=== PATIENT | female | born 2000 | race Hispanic/Latino ===

== ENCOUNTER 2022-11-14 03:05 | Emergency (ER) | payer SELFPAY ==
--- OUTSIDE RECORDS SUMMARY | 2022-11-14 03:09 | XMS REPORT | Continuity of Care Document ---
:2000 Author Organization [facility] t Address [address] [facility] [place] [address] Care Team Providers Name Role Phone PCP, PATIENT DOES NOT HAVE A Primary Care Physician CARLENE Cotton Attending Clinician Unavailable Carlene Sanchez MD Attending Clinician LEONILA GIBBONS Attending Clinician Unavailable Leonila Gibbons MD Attending Clinician Doctor Unassigned, [place] Attending Clinician Unavailable Payers Payer Name Policy Type Policy Number Effective Date Expiration Date S ource Problems Condition Condition Condition Status Onset Resolution Last Treating Co mments Source Name Details Category Date Date Treatment Clinician Date Hyperprola Hyperprola Disease Active U nivers ctinemia ctinemia 10-07 ity of 00:00: [place] [facility] Nipple Nipple Disease Active Univers discharge discharge 09-15 ity of 00:00: [address] [place] [address] Pediatric Pediatric Disease Active Uni vers overweight overweight 5-08 it y of 00:00: [address] Labile Labile Disease Active Univers blood blood 508 ity of pressure pressure 00:00: [address] Abnormal Abnormal Disease Active Unive rs vision vision 5-08 ity of screen screen 00:00: [address] Allergies, Adverse Reactions, Alerts Allergy Allergy Status Severity Reaction(s) Onset Inactive Treating Comm ents Source Name Type Date Date Clinician NO KNOWN Drug Active Univers ALLERGIE Class ity of [facility] Social History Social Habit Start Date Stop Date Quantity Comments Source History of Cigarette Smoker Universi ty of tobacco use [facility] Tobacco Comment 2018-10-06 2018-10-06 1 ciggs a day Univer sity of 00:00:00 00:00:00 [facility] Alcohol Comment 2018-10-06 2018-10-06 rare Universit y of 00:00:00 00:00:00 [facility] Alcohol intake 2018-10-06 2018-10-06 Current drinker Unive rsity of 00:00:00 00:00:[address] [facility] [place] Tobacco use and 2018-10-06 2018-10-06 Smokeless tobacco Un iversity of exposure 00:00:00 00:00:00 non-user [facility] Sex Assigned At [birth year] Universit y of 00:00:00 00:00:00 [facility] Smoking Status Start Date Stop Date Source Smokes tobacco daily 2018-10-06 00:00:00 Univers [facility] Never smoker [facility] Medications Ordered Filled Start Stop Current Ordering Indication Dosage Frequency Signature Comments Components Source Medication Medication Date Date Medication? Clinician (SIG) Name Name No known No Univers medications [facility] No known No Univers medications [facility] No known No Univers medications [facility] Vital Signs Vital Name Observation Time Observation Value Comments Source Systolic blood 2018-10-06 15:28:00 113 mm[Hg] Univer sity of pressure [facility] Diastolic blood 2018-10-06 15:28:00 77 mm[Hg] Unive rsity of [facility] Heart rate 2018-10-06 15:28:00 54 /min Universi ty [facility] Body temperature 2018-10-06 15:28:00 36.67 [facility] Respiratory rate 2018-10-06 15:28:00 18 /min [facility] Body height 2018-10-06 15:28:00 167.6 cm Universi ty [facility] Body weight 2018-10-06 15:28:00 94.802 kg Universi ty [facility] BMI 2018-10-06 15:28:00 33.73 kg/m2 Universi ty [facility] Procedures Procedure Date / Time Performed Performing Clinician Sour e ASSIGNMENT OF BENEFITS 2018-10-06 15:11:05 Doctor Unassigned, No [facility] Name [facility] Encounters Start End Encounter Admission Attending Care Care Encounter Source Date/Time Date/Time Type Type Clinicians Facility Department ID 2022-04-06 2022-04-06 Outpatient R [facility] [id number] Univers 10:30:00 10:30:00 CARLENEROSA M neville [facility] 2022-03-10 2022-03-10 [facility] [id number] Univers 09:30:00 09:30:00 CARLENE neville [facility] 2022-03-09 2022-03-09 [facility] [id number] Univers 00:00:00 00:00:00 (Out) Carlene RODRIGUEZ [id number] i ty [id number] [id number] [facility] [address] 2019-10-11 2019-10-11 [facility] [id number] Univers 14:15:00 14:15:00 LEONILA neville [facility] 2018-10-06 2018-10-06 Office Gibbons, [facility] [id number] Univers 10:16:21 10:54:40 Visit Leonila Salguero [id number] [id number] [id number] [place] [address] 2018-10-06 2018-10-06 Orders Doctor TERAN [id number] Univers 00:00:00 00:00:00 Only Unassigned, VIGNESH [id number] ity of [place] [facility] [id number] Tomas[place] as [id number] [facility] [address] Results This patient has no known results.
[2022-11-14] MEDS ORDERED: KETOROLAC 30 MG/ML INJ ONE (03:54)
[2022-11-14 04:00] LABS: Absolute Lymphocytes (CBC) 2.7 K/uL (0.7-4.9); Hematocrit 35.5 % (36.0-45.0); Lymphocytes % 20.7 % (15.3-44.8); MCV 88.3 fL (80-100); MPV 9.5 fL (7.6-11.3); Platelets 261 thou/uL (152-406); RBC Red Blood Cell Count 4.02 M/uL (3.86-4.86)
[2022-11-14 04:02] LABS: Specific Gravity 1.006 (1.005-1.030); Urine Bacteria <20 /HPF (<20); Urine Bilirubin NEGATIVE (Negative); Urine Blood 3+ (OVER) (Negative); Urine Clarity Turbid (Clear); Urine Color Colorless (Yellow); Urine Crystals Unidentified Few /HPF (None Seen); Urine Glucose NEGATIVE (Negative); Urine Mucus Slight /HPF (None Seen); Urine Protein TRACE (Negative); Urine Urobilinogen Normal (Normal); Urine WBC Clump Rare /HPF (None Seen)
[2022-11-14 04:17] LABS: Bilirubin Total 0.4 mg/dL (0.2-1.0); Potassium 3.5 mEq/L (3.5-5.1); Protein, Total 9.9 g/dL (6.4-8.2)
--- NOTE | 2022-11-14 06:43 | RAD REPORT ---
EXAM DESCRIPTION: US - Renal Ultrasound-Complete - 11/14/2022 5:07 am CLINICAL HISTORY: ABD PAIN COMPARISON: Transvaginal Study Probe dated 11/14/2022 FINDINGS: Both kidneys are normal in size, shape and echotexture. The right kidney measures 8.7 cm. No hydronephrosis, focal mass or perinephric fluid. The left kidney measures 10.7 cm. No hydronephrosis, focal mass or perinephric fluid. The urinary bladder is incompletely distended without gross abnormality seen. IMPRESSION: Unremarkable renal sonogram. No evidence of hydronephrosis.
--- NOTE | 2022-11-14 06:57 | ER ---
[facility] Name: Linda Gore Age: 22 yrs Sex: Female : 2000 Arrival Date: 11/14/2022 Time: 03:05 Bed 19 Private MD: Diagnosis: Acute urinary tract infection with hematuria;Lower abdominal pain Presentation: 11/14 03:18 Chief complaint: Patient states: lower abdominal pain that wraps around abdomen to as6 lower back. denies nausea and vomiting. Coronavirus screen: At this time, the client does not indicate any symptoms associated with coronavirus-19. Ebola Screen: No symptoms or risks identified at this time. Initial Sepsis Screen: Does the patient meet any 2 criteria? No. Patient's initial sepsis screen is negative. Does the patient have a suspected source of infection? No. Patient's initial sepsis screen is negative. Risk Assessment: Do you want to hurt yourself or someone else? Patient reports no desire to harm self or others. Onset of symptoms was November 11, 2022. 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 - Social history:: Smoking status: Patient reports the use of cigarette tobacco products, denies chronic smoking, but will smoke occasionally. Screenin:38 [facility] ED Fall Risk Assessment (Adult) History of falling in the last 3 months, jb4 including since admission No falls in past 3 months (0 pts) Confusion or Disorientation No (0 pts) Score/Fall Risk Level 0 - 2 = Low Risk Oriented to surroundings, Maintained a safe environment. Abuse screen: Denies threats or abuse. Nutritional screening: No deficits noted. Tuberculosis screening: No symptoms or risk factors identified. Assessment: 03:38 General: Appears in no apparent distress. uncomfortable, Behavior is calm, cooperative, jb4 appropriate for age. Pain: Complains of pain in right lower quadrant and left lower quadrant Pain radiates to low back area Pain currently is 8 out of 10 on a pain scale. Neuro: Level of Consciousness is awake, alert, obeys commands, Oriented to person, place, time, situation. Cardiovascular: Patient's skin is warm and dry. Respiratory: Airway is patent Respiratory effort is even, unlabored, Respiratory pattern is regular, symmetrical. GI: Abdomen is non-distended, obese. : Reports pain with urination. EENT: No signs and/or symptoms were reported regarding the EENT system. Derm: Skin is intact, Skin is pink, warm \T\ dry. Musculoskeletal: Circulation, motion, and sensation intact. Range of motion: intact in all extremities. 05:00 Reassessment: Patient appears in no apparent distress at this time. Patient and/or jb4 family updated on plan of care and expected duration. Pain level reassessed. Patient is alert, oriented x 3, equal unlabored respirations, skin warm/dry/pink. Patient states feeling better. 06:30 Reassessment: Patient appears in no apparent distress at this time. Patient and/or jb4 family updated on plan of care and expected duration. Pain level reassessed. Patient is alert, oriented x 3, equal unlabored respirations, skin warm/dry/pink. Vital Signs: 03:16 BP 130 / 73; Pulse 72; Resp 20 S; Temp 100(O); Pulse Ox 100% on R/A; Weight 104.33 kg as6 (R); Height 5 ft. 5 in. (R); Pain 9/10; 05:00 BP 119 / 69; Pulse 100; Resp 16; Pulse Ox 99% on R/A; jb4 06:30 BP 116 / 73; Pulse 99; Resp 16; Pulse Ox 100% on R/A; jb4 03:16 Body Mass Index 38.27 (104.33 kg, 165.1 cm) as6 03:16 Pain Scale: Adult as6 ED Course: 03:09 Patient arrived in ED. jj6 03:16 Arm band placed on. as6 03:19 Triage completed. as6 03:24 Hollie Hilario MD is Attending Physician. sd2 03:38 Patient has correct armband on for positive identification. Bed in low position. Call jb4 light in reach. Side rails up X 1. 03:45 Inserted saline lock: 22 gauge in left antecubital area, using aseptic technique. Blood wm collected. 03:56 Test, Urine Sent. 03:56 Urinalysis w/ reflexes Sent. 03:56 Lipase Sent. 03:56 CMP Sent. 03:56 CBC with Diff Sent. wm 05:09 Renal Ultrasound-Complete In Process Unspecified. EDMS 05:09 Transvaginal Study Probe In Process Unspecified. EDMS 05:24 López Leavitt, RN is Primary Nurse. jb4 07:04 No provider procedures requiring assistance completed. IV discontinued, intact, jb4 bleeding controlled, No redness/swelling at site. Pressure dressing applied. Administered Medications: 03:54 Drug: Ketorolac IVP 15 mg IVP once Route: IVP; Site: left antecubital; jb4 06:55 Drug: Rocephin IV 1 grams IV at bolus once; Given slow IV push per pharmarcy jb4 instructions Route: IV; Rate: bolus; Site: left antecubital; Medication: 03:38 VIS not applicable for this client. jb4 Outcome: 06:56 Discharge ordered by . sd2 07:04 Discharged to home ambulatory, with family, jb4 07:04 Condition: stable 07:04 Discharge instructions given to patient, Instructed on discharge instructions, follow up and referral plans. medication usage, Demonstrated understanding of instructions, follow-up care, medications, Prescriptions given X 2, 07:04 Patient left the ED. jb4 Signatures: Dispatcher [employer] EDLópez Richey, MENDEL RN jb4 Nedra Roque Charley Pro jj6 Wilbert Skelton RN RN as6 Hollie Hilario MD MD sd2
--- NOTE | 2022-11-14 06:57 | EDPHYS ---
Physician Documentation [facility] Name: Linda Gore Age: 22 yrs Sex: Female : 2000 Arrival Date: 11/14/2022 Time: 03:05 Bed 19 Private MD: ED Physician Hollie Hilario HPI: 11/14 03:50 This 22 yrs old Female presents to ER via Wheelchair with complaints of Abdominal Pain. sd2 03:50 22 yo F presents with CC of lower abdominal pain that started night. Reports sd2 progressively worsened. Initially thought her period was starting because she noticed some blood in her urine but then resolved. States felt like cramping but then worsened. Is worse on the left side compared to the right. Denies any current urinary symptoms. Denies fever, n/v/d. Denies any chance of . . 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 - Social history:: Smoking status: Patient reports the use of cigarette tobacco products, denies chronic smoking, but will smoke occasionally. ROS: 03:50 Constitutional: Negative for fever, chills, and weight loss, Eyes: Negative for injury, sd2 pain, redness, and discharge, Cardiovascular: Negative for chest pain, palpitations, and edema, Respiratory: Negative for shortness of breath, cough, wheezing. 03:50 MS/Extremity: Negative for injury and deformity, Skin: Negative for injury, rash, and discoloration, Neuro: Negative for headache, numbness and tingling. 03:50 Abdomen/GI: Positive for abdominal pain, Negative for nausea, vomiting, and diarrhea, constipation, 03:50 : Positive for hematuria, Negative for urinary frequency, difficulty urinating, vaginal bleeding, Exam: 03:50 Constitutional: This is a well developed, well nourished patient who is awake, alert, sd2 and in no acute distress. Head/Face: Normocephalic, atraumatic. Eyes: EOMI, normal conjunctiva bilaterally Chest/axilla: Normal chest wall appearance and motion. Nontender with no deformity. Cardiovascular: Regular rate and rhythm with a normal S1 and S2. No gallops, murmurs, or rubs. 2+ distal pulses. Respiratory: Lungs have equal breath sounds bilaterally, clear to auscultation and percussion. No rales, rhonchi or wheezes noted. No increased work of breathing, no retractions or nasal flaring. Abdomen/GI: Soft, ND, TTP of the lower abdomen most prominent in the LLQ, no rebound or guarding Skin: Warm, dry with normal turgor. Normal color with no rashes, no lesions, and no evidence of cellulitis. MS/ Extremity: Pulses equal, no cyanosis. Neurovascular intact. Full, normal range of motion. Ambulatory without difficulty. Psych: Awake, alert, with orientation to person, place and time. Behavior, mood, and affect are within normal limits. Vital Signs: 03:16 BP 130 / 73; Pulse 72; Resp 20 S; Temp 100(O); Pulse Ox 100% on R/A; Weight 104.33 kg as6 (R); Height 5 ft. 5 in. (R); Pain 9/10; 05:00 BP 119 / 69; Pulse 100; Resp 16; Pulse Ox 99% on R/A; jb4 06:30 BP 116 / 73; Pulse 99; Resp 16; Pulse Ox 100% on R/A; jb4 03:16 Body Mass Index 38.27 (104.33 kg, 165.1 cm) as6 03:16 Pain Scale: Adult as6 MDM: 03:24 Patient medically screened. sd2 03:50 Differential Diagnosis Gastritis, cholecystitis, pancreatitis, SBO, diverticulitis, sd2 kidney stone, appendicitis, UTI, dehydration, electrolyte abnormality among others. Data reviewed: vital signs, nurses notes, lab test result(s), radiologic studies. I considered the following discharge prescriptions or medication management in the emergency department Medications were administered in the Emergency Department. See APR. 06:53 Test considered but Not performed: CT: not indicated. Counseling: I had a detailed sd2 discussion with the patient and/or guardian regarding the historical points, exam findings, and any diagnostic results supporting the discharge/admit diagnosis, lab results, radiology results, the need for outpatient follow up, to return to the emergency department if symptoms worsen or persist or if there are any questions or concerns that arise at home. Response to treatment: the patient's symptoms have markedly improved after treatment. ED course: Labs and imaging reviewed. UA consistent with infection but hematuria present. No signs of stone or hydronephrosis on US. Pelvic US negative as well. Pain resolved after Toradol. No indication for further workup at this time. Suspect hemorrhagic cystitis. Rocephin given and patient to be discharged home with oral abx and follow up to resolution with PCP. Verbalizes understanding of discharge plan and strict return precautions. . 11/14 03:32 Order name: CBC with Diff; Complete Time: 04:05 sd2 11/14 03:32 Order name: CMP; Complete Time: 06:41 sd2 11/14 03:32 Order name: Lipase; Complete Time: 06:41 sd2 11/14 03:32 Order name: Urinalysis w/ reflexes; Complete Time: 04:05 sd2 11/14 03:32 Order name: Test, Urine; Complete Time: 04:05 sd2 11/14 04:06 Order name: Urine Culture EDMS 11/14 04:15 Order name: Renal Ultrasound-Complete; Complete Time: 06:48 EDMS 11/14 04:15 Order name: Transvaginal Study Probe EDMS Administered Medications: 03:54 Drug: Ketorolac IVP 15 mg IVP once Route: IVP; Site: left antecubital; jb4 06:55 Drug: Rocephin IV 1 grams IV at bolus once; Given slow IV push per pharmarcy jb4 instructions Route: IV; Rate: bolus; Site: left antecubital; Disposition Summary: 11/14/22 06:56 Discharge Ordered Problem: new sd2 Symptoms: have improved sd2 Condition: Stable sd2 Diagnosis - Acute urinary tract infection with hematuria sd2 - Lower abdominal pain sd2 Followup: sd2 - With: Private Physician - When: 2 - 3 days - Reason: Recheck today's complaints, Continuance of care, Re-evaluation by your physician Discharge Instructions: - Discharge Summary Sheet sd2 Forms: - Medication Reconciliation Form sd2 - Thank You Letter sd2 - Antibiotic Education sd2 - Prescription Opioid Use sd2 - Patient Portal Instructions sd2 - Leadership Thank You Letter sd2 Prescriptions: - Cephalexin 500 mg Oral Capsule - take 1 capsule ORAL route every 12 hours for 10 days; 20 capsule; Refills: 0, sd2 Product Selection Permitted - Ibuprofen 800 mg Oral tablet - take 1 tablet ORAL route every 8 hours As needed take with food; 20 tablet; sd2 Refills: 0, Product Selection Permitted Signatures: Dispatcher [employer] EDLópez Richey RN RN jb4 Wilbert Skelton RN RN as6 Hollie Hilario MD MD sd2 Corrections: (The following items were deleted from the chart) 04:15 03:32 Pelvis Complete+US.RAD.BRZ ordered. EDMS EDMS 04:15 04:08 Abdomen Limited+US.RAD.BRZ ordered. EDMS EDMS
[2022-11-14] MEDS ORDERED: CEFTRIAXONE 1000 MG/VIAL ONE (07:00)
[2022-11-14 07:19] VITALS: TEMP 100
[2022-11-14 07:31] VITALS: BP 116/73; O2SAT 100
--- NOTE | 2022-11-15 10:28 | RAD REPORT ---
EXAM DESCRIPTION: US - Transvaginal Study Probe - 11/14/2022 5:07 am CLINICAL HISTORY: 22 years Female, PAIN COMPARISON: None. TECHNIQUE: Complete pelvic ultrasound obtained with transvaginal and transabdominal imaging. FINDINGS: Uterus: The uterus measures 5.8 x 3.1 x 5.0 cm. No myometrial abnormalities. Endometrium: Endometrial thickness of 0.8 cm. Right ovary: The right ovary measures 2.3 x 2.2 x 2.4 cm Left ovary: The left ovary measures 2.9 x 1.5 x 2.9 cm. Adnexa: No additional adnexal findings. Free fluid: Trace free fluid. Duplex imaging: Color and spectral Doppler imaging demonstrates blood flow within the ovaries. IMPRESSION: 1. Trace free fluid may be physiologic. Otherwise no abnormality identified. Electronically signed by: Kailash Borden 11/14/2022 5:34 AM CDT Due to temporary technical issues with the PACS/Fluency reporting system, reports are being signed by the in house radiologist without review as a courtesy to ensure prompt reporting. The interpreting r adiologist is fully responsible for the content of the report.
== END 2022-11-14 07:04 | disposition home or self-care (01) ==
LOC: ER 03:05
DX: N39.0 Urinary tract infection, site not specified (principal); R31.9 Hematuria, unspecified
CPT/HCPCS: 36415; 76770; 76830; 80053; 81001; 81025; 83690; 85025; 87077; 87086; 87088; 87186; 96374; 96375; 99284; J0696